=== PATIENT | male | born 1940 | race Caucasian/White ===

== ENCOUNTER 2017-07-31 10:27 | Emergency (ER) | payer OTHER ==
[~2017-07-31] VITALS: Ht 182.9 cm; Wt 97.7 kg
[2017-07-31] MEDS ORDERED: TOPROL XL25 MG PO (13:17)
[2017-07-31 13:47] LABS: HEMATOCRIT 52.2 % (38.0-50.0); MCH 30.9 PG (29.0-34.0); MCHC 32.4 G/DL (30.0-36.0); MCV 95.4 FL (86-99); PLATELET COUNT 185 K/uL (156-360); RBC DIS.WIDTH-CV 12.9 % (11.8-14.6); RBC DIS.WIDTH-SD 45.9 % (39-53); RED BLOOD COUNT 5.47 M/uL (4.00-5.50)
[2017-07-31 13:58] LABS: CHLORIDE 106 mEq/L (99-109); POTASSIUM 4.2 mEq/L (3.7-5.4); SODIUM 139 mEq/L (136-147)
[2017-07-31 13:59] LABS: GLUCOSE 91 mg/dL (70-99)
[2017-07-31 14:01] LABS: ANION GAP 11 MEQ/L (2-14)
[2017-07-31 14:03] LABS: GFR ESTIMATE (CALCULATED) 57 mL/min/
[2017-07-31 14:04] LABS: UREA NITROGEN (BUN) 15 mg/dL (9-23)
[2017-07-31] MEDS ORDERED: CLONIDINE HCL0.1 MG PO (16:26)
[2017-07-31 16:51] VITALS: BP 171/103
== END 2017-07-31 16:58 | disposition home or self-care (01) ==
LOC: EME 10:27 → NUC 10:27 → EME 10:27 → NUC 10:30 → EDSTATUS 10:30 → EME 16:58
PROVIDERS: Emergency Medicine
DX: I10 Essential (primary) hypertension (principal)
CPT/HCPCS: 78452; 80048; 85027; 93017; 99281; 99285; A9500; J0360; J2785